=== PATIENT | male | born 1945 | race Caucasian/White ===

== ENCOUNTER 2018-09-30 11:28 | Inpatient (IN) ==
--- NOTE | 2018-09-30 12:06 | Diag Imaging Result Doc PS360 ---
EXAM: CT HEAD W/O CONTRAST 09/30/2018 HISTORY: STROKE LIKE SYMPTOMS TECHNIQUE: This exam was performed using automated exposure control, adjustment of mA or kV according to patient size, and/or use of iterative reconstruction technique. COMMENT: There are patchy periventricular white matter lucencies bilaterally as well as an area of encephalomalacia in the left cerebellar sphere. There is a small lacune in the basal ganglia inferiorly on the left. No evidence of mass effect, bleed, or abnormal extra-axial fluid collection is present. The visualized paranasal sinuses are clear. The calvarium is intact. Compared to the previous examination of 10/27/2014 most of the chronic changes were present previously however the encephalomalacia in the left cerebellar hemisphere was not present at that time. IMPRESSION: Chronic ischemic microvascular changes. Encephalomalacia in the left cerebellar hemisphere which has occurred since 10/27/2014. Electronically signed by Jose Mendoza 09/30/2018 12:03 PM
[2018-09-30 12:41] LABS: INR 1.01; PROTIME 14.1 Seconds (11.0-16.0)
[2018-09-30 12:47] LABS: BASO# 0.01 X1000 (0.0-0.2); BASO% 0.1 % (0.0-0.8); EOS# 0.02 X1000 (0.0-0.7); EOS% 0.3 % (0.0-10.0); HEMATOCRIT 26.2 % (42.0-52.0); HEMOGLOBIN 7.6 g/dL (14.0-18.0); LYMPH# 2.08 X1000 (1.2-3.4); LYMPH% 26.9 % (20.5-51.1); MCH 18.7 PG (27-31); MCV 64.4 FL (81-99); MONO# 0.47 X1000 (0.11-0.59); MONO% 6.1 % (1.7-9.3); MPV 8.6 FL (7.4-10.4); NEUT# 5.15 X1000 (1.4-6.5); NEUT% 66.6 % (42.2-75.2); PLT 505 X1000 (130-400); RBC 4.07 XMIL (4.7-6.1); RDW 18.9 % (11.5-14.5); WBC 7.73 X1000 (4.8-10.8)
[2018-09-30 13:10] LABS: AGAP 12; ALB/GLOB RATIO 0.9; ALBUMIN 3.2 g/dL (3.5-5.0); ALKALINE PHOSPHATASE 102 U/L (32-122); BUN 13 mg/dL (8-22); CALCIUM 8.7 mg/dL (8.8-10.2); CHLORIDE 97 mmol/L (98-107); COSMO 270; CREATININE 1.1 mg/dL (0.7-1.2); ESTIMATED GFR > 60; GLUCOSE 93 mg/dL (70-104); GOT 11 U/L (10-34); GPT < 5 U/L (10-44); POTASSIUM 3.8 mmol/L (3.5-5.1); SODIUM 135 mmol/L (136-145); TCO2 26 mmol/L (25-35); TOTAL BILIRUBIN 0.22 mg/dL (0.20-1.00); TOTAL PROTEIN 6.7 g/dL (6.3-8.3)
--- NOTE | 2018-09-30 13:16 | Diag Imaging Result Doc PS360 ---
EXAM: CHEST-PORTABLE 09/30/2018 HISTORY: stroke like symptoms TECHNIQUE: AP portable at 1307 COMMENT: There are some rib deformities on the left which are presumably due to previous fractures. The heart size and pulmonary vascularity are within normal limits. There are some skin fold seen over the lower chest bilaterally. Overall considering differences in technique there has been no significant change since 08/30/2016. IMPRESSION: Stable chest. Electronically signed by Jose Mendoza 09/30/2018 1:13 PM
[2018-09-30 13:36] LABS: URINE SOURCE CATH
[2018-09-30 13:47] LABS: BILIRUBIN URINE NEGATIVE (NEGATIVE); BLOOD URINE TRACE (NEGATIVE); COLOR YELLOW; GLUCOSE URINE NEGATIVE (NEGATIVE); KETONE URINE NEGATIVE (NEGATIVE); LEUKOCYTES URINE NEGATIVE (NEGATIVE); NITRITE URINE NEGATIVE (NEGATIVE); PROTEIN URINE 200 mg/dL (NEGATIVE); SP GRAVITY URINE 1.012; TURBIDITY URINE CLEAR (CLEAR); UROBILINOGEN URINE NORMAL (NORMAL)
[2018-09-30 13:48] LABS: UR EPITHELIAL CELLS <10 /HPF (<10); URINE BACTERIA NEGATIVE /HPF; URINE RBC <10 /HPF (<10); URINE WBC <10 /HPF (<10)
--- NOTE | 2018-09-30 14:55 | EKG Report ---
Test Performed on : 09/30/2018 12:18:25 PM Test Reason : Stroke like symptoms Blood Pressure : / mmHG Vent. Rate : 068 BPM Atrial Rate : 068 BPM P-R Int : 202 ms QRS Dur : 090 ms QT Int : 424 ms P-R-T Axes : 036 023 055 degrees QTc Int : 450 ms Normal sinus rhythm. Nonspecific ST abnormality Abnormal ECG When compared with ECG of 30-AUG-2016 06:02, Vent. rate has decreased BY 35 BPM Unconfirmed Result
[2018-09-30] MEDS ORDERED: ZOFRAN IV PRN (15:52)
[2018-09-30] MEDS ORDERED: TORADOL IV PRN (15:52)
[2018-09-30] MEDS ORDERED: TYLENOL PO PRN (15:52)
--- NOTE | 2018-09-30 17:41 | HISTORY AND PHYSICAL ---
CHIEF COMPLAINT: Confusion with left-sided weakness, especially left arm PRESENT ILLNESS: The patient is a 73-year-old white male with known vascular disease and COPD, as well as dementia who has had memory problems but this got much worse around 6 a.m. this morning. He also felt very weak and was unsteady on his feet. His had him brought to the emergency room. When he got here his left arm was much weaker than it had been previously and he is still having some problems with it. MEDICATIONS: Aricept 10 mg by mouth daily, aspirin 81 mg daily, Crestor 40 mg at bedtime, indapamide 2.5 mg daily, Namenda 10 mg twice daily, amlodipine 10 mg daily, omeprazole 40 mg daily, Trelegy Ellipta 1 puff daily, Zetia 10 mg daily. PAST MEDICAL HISTORY: Hyperlipidemia, peripheral vascular disease, COPD, dementia, chronic hearing loss, wears a hearing aid in the right ear, hypertension, prediabetes, BPH, left inguinal hernia, and proteinuria. PAST SURGICAL HISTORY: Appendectomy, cholecystectomy, bypass on left leg, carotid arteries bilaterally, tonsillectomy. FAMILY HISTORY: Positive for breast cancer with a sister, diabetes with his brother, and heart disease with his father. SOCIAL HISTORY: The patient has been a smoker. REVIEW OF SYSTEMS: Unable to obtain at this point other than through his . Neurologic: He did deny headaches. He is unaware that he has had a problem controlling his hand. She said he has been stable with all systems until this morning, other than his dementia, which has been progressive. PHYSICAL EXAMINATION: VITAL SIGNS: Blood pressure was 113/69, has been up to 179/84, respirations 18, pulse 70, temp 97.4 degrees Fahrenheit, oxygen saturation is 99% on room air. HEENT: Normocephalic. EOMs intact. PERRLA. Throat clear. Fundi not seen well due to constriction of pupils. TMs within normal limits. He does have a hearing aid in the right ear. NECK: Supple without thyromegaly, lymphadenopathy, or carotid bruits. LUNGS: Clear to auscultation and percussion without rhonchi, rales, or wheezes. HEART: Regular rate and rhythm without murmurs, gallops, or friction rubs. ABDOMEN: Soft. Active bowel sounds. No organomegaly or tenderness. INTEGUMENT: Shows no lesions consistent with melanoma or other skin cancers. LYMPHATIC: Lymph nodes are nonpalpable in the cervical and supraclavicular areas. NEUROLOGICAL: Cranial nerves 2-12 intact grossly. He does have definite weakness of his left arm and loss of control there. 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 Some question about a little bit of weakness in his left lower extremity but this is not very clear at this point. IMAGING: CT scan of the head showed no acute findings. LABORATORY: White count 7,730, hemoglobin 7.6, hematocrit 26.2. He has been having a chronic anemia that we were working up as an outpatient. Platelet count is 505,000. INR is 1.01, PT 14.1, PTT 30. Sodium 135, potassium 3.8, chloride 9.7, BUN 13, creatinine 1.1. Urine was essentially normal except for some protein, which he has had previously. ASSESSMENT: 1. Probable cerebrovascular accident. 2. Dementia. 3. Anemia, which was found to be an iron deficiency anemia. PLAN: We will get an MRI scan of his head. We will start him on Plavix and stop his aspirin. We will consult Neurology. cc: Tony Trinidad Jr, MD MTDD
[2018-09-30 17:57] LABS: IRON SATURATION 4 %; TIBC 322 ug/dL; TOTAL IRON 12 ug/dL (53-167); UNBOUND IRON 310 ug/dL (112-346)
--- NOTE | 2018-09-30 17:59 | PROVIDER DOCUMENTATION ---
This chart was entered by Leidy Gee Scribe, acting as scribe for Roland Leger MD. HPI-Neurological Disorder - General Chief Complaint: Stroke-Like Symptoms Stated Complaint: STROKE LIKE SYMPTOMS Time Seen by Provider: 09/30/18 12:00 Source: family Allergies/Adverse Reactions: Patient Allergies Allergy/AdvReac Type Severity Reaction Status Date / Time meperidine HCl * Allergy NAUSEA/VOMI Verified 09/30/18 12:08 [From Demerol] TING morphine AdvReac VOMITING Verified 09/30/18 12:08 Sulfa (Sulfonamide AdvReac NAUSEA/VOMI Verified 09/30/18 12:08 Antibiotics) TING Home Medications: Home Medication List Medication Instructions Recorded Confirmed Last Taken Type Donepezil [Aricept] 10 mg PO DAILY 08/30/16 09/30/18 09/29/18 History Memantine HCl [Namenda] 10 mg PO DAILY 08/30/16 09/30/18 09/29/18 History Omeprazole 40 mg PO DAILY 08/26/18 09/30/18 09/29/18 History Ezetimibe 1 tab PO QHS 09/30/18 09/30/18 09/29/18 History - History of Present Illness-Neuro Nature of Presenting Problem: Patient is a 73 year old male who presents with LUE weakness that started at 0630 this morning. Patient's denies patient had trouble walking. Patient denies pain. Severity: reports: mild Onset/Duration: reports: this morning (0630) Timing: reports: still present Character of Altered Mental Status: reports: N/A Character of Deficits: reports: new weakness New weakness or altered sensation location:: reports: LUE Cognitive Baseline: alert, oriented x3 Gait Baseline: walks without assistance Associated Symptoms: reports: denies symptoms Similar Symptoms Previously?: No Recently seen or treated by another doctor?: No Review of Systems - Adult - REVIEW OF SYSTEMS - ADULT ROS:: ROS per family () Constitutional: reports: no symptoms reported. denies: chills, fever, fatique Eyes: reports: no symptoms reported Ears, Nose, Mouth & Throat: reports: no symptoms reported Cardiovascular: reports: no symptoms reported Respiratory: reports: no symptoms reported Gastrointestinal: reports: no symptoms reported Genitourinary: reports: no symptoms reported Musculoskeletal: reports: no symptoms reported Integumentary: reports: no symptoms reported Neurological: reports: see HPI, other (LUE weakness). denies: dizziness/vertigo, headache/migraines, numbness, seizure Psychiatric: reports: no symptoms reported Endocrine: reports: no symptoms reported Hematologic/Lymphatic: reports: no symptoms reported Allergic/Immunologic: reports: no symptoms reported All Other Systems: Reviewed and Negative Past History - Adult - PAST MEDICAL HISTORY-ADULT Review of Records: reports: Nursing Assessment Review, Medications Reviewed, Social history reviewed & non-contributory. Major Childhood Illnesses: reports: denies history Cardiovascular: reports: HTN, hyperlipidemia Respiratory: reports: COPD Gastrointestinal: reports: denies history Obstetrical/Gynecological: reports: denies history Genitourinary: reports: denies history Musculoskeletal: reports: denies history Neurological: reports: CVA Psychiatric: reports: denies history Endocrine/Immune: reports: denies history Other Conditions: reports: denies history - PRIOR SURGERIES/PROCEDURES Surgical/Procedure History: reports: recent surgery (left carotidectomy), tonsillectomy, other (BYPASS BLE) - IMMUNIZATION STATUS Childhood Immunizations: See Nurse Assessment Flu Vaccine: See Nurse Assessment - FAMILY HISTORY Family History: reviewed, not pertinent - SOCIAL HISTORY Smoking: cigarettes (former) Substance Use: denies Living Situation: family Physical Exam- Neurological - Physical Exam-Neuro Initial Vital Signs Reviewed: Yes General Appearance: alert, no apparent distress, slow to respond. negative: lethargic Eye Exam: bilateral eye: normal inspection HENMT: normocephalic/atraumatic, moist mucous membranes, hearing deficit (chronic per ). negative: angioedema Head Injury: no evidence of injury. negative: ecchymosis, lacerations Neck: non-tender, normal inspection. negative: lymphadenopathy, tender lateral Respiratory: chest non-tender, lungs clear, normal breath sounds. negative: crackles, stridor Cardiovascular: normal peripheral pulses, regular rate, rhythm. negative: tachycardia, systolic murmur Abdominal Exam: normal bowel sounds, non tender, soft. negative: guarding, rebound Extremity: non-tender. negative: deformity, erythema director recreation Exam: normal speech, PERRL. negative: abnormal speech, facial droop Motor/Sensory: weak motor strength LUE Neurologic: motor weakness (LUE). negative: aphasia, facial droop Integumentary: normal color, normal turgor, warm/dry. negative: cyanosis, ecchymosis, erythema, jaundice, rash Psych/Mental Status: normal mood/affect, oriented x 3. negative: anxious - Glascow Coma Scale Best Eye Response: (4) open spontaneously Best Verbal Response: (5) oriented Best Motor Response: (6) obeys commands Total Glascow Score: 15 Progress - PLAN OF CARE/RESULTS Progress/Plan/Lab Results: Vital Signs - 8 hr 09/30/18 11:30 09/30/18 11:59 09/30/18 12:00 Temperature 97.8 F Pulse Rate 81 76 76 Respiratory Rate 18 13 23 Blood Pressure 171/95 126/76 O2 Sat by Pulse Oximetry 98 98 98 09/30/18 12:01 09/30/18 12:31 09/30/18 12:32 Temperature Pulse Rate 72 70 73 Respiratory Rate 29 H 20 25 H Blood Pressure 111/76 127/79 O2 Sat by Pulse Oximetry 97 98 98 09/30/18 12:40 09/30/18 12:50 09/30/18 13:00 Temperature Pulse Rate 72 73 80 Respiratory Rate 22 21 25 H Blood Pressure O2 Sat by Pulse Oximetry 97 97 98 09/30/18 13:01 09/30/18 13:10 09/30/18 13:20 Temperature Pulse Rate 72 76 73 Respiratory Rate 24 23 24 Blood Pressure 138/85 O2 Sat by Pulse Oximetry 98 97 98 09/30/18 13:30 09/30/18 13:32 09/30/18 13:40 Temperature Pulse Rate 75 70 75 Respiratory Rate 19 20 26 H Blood Pressure 131/85 O2 Sat by Pulse Oximetry 98 97 98 09/30/18 13:50 09/30/18 14:00 09/30/18 14:01 Temperature Pulse Rate 69 72 69 Respiratory Rate 17 23 18 Blood Pressure 129/83 O2 Sat by Pulse Oximetry 98 98 98 09/30/18 14:10 09/30/18 14:20 09/30/18 14:30 Temperature Pulse Rate 71 74 70 Respiratory Rate 24 19 24 Blood Pressure O2 Sat by Pulse Oximetry 99 99 98 09/30/18 14:31 09/30/18 15:01 Temperature Pulse Rate 77 71 Respiratory Rate 22 22 Blood Pressure 126/84 130/81 O2 Sat by Pulse Oximetry 99 97 Laboratory Results - last 24 hr 09/30/18 09/30/18 09/30/18 12:17 12:17 12:17 WBC 7.73 RBC 4.07 L Hgb 7.6 L Hct 26.2 L MCV 64.4 L MCH 18.7 L MCHC 29.0 L RDW Std Deviation 18.9 H Plt Count 505 H MPV 8.6 Immature Gran % (Auto) 0.0 Neut % (Auto) 66.6 Lymph % (Auto) 26.9 [place] % (Auto) 6.1 Eos % (Auto) 0.3 Baso % (Auto) 0.1 Immature Gran # (Auto) 0.00 Neut # (Auto) 5.15 Lymph # (Auto) 2.08 [place] # (Auto) 0.47 Eos # (Auto) 0.02 Baso # (Auto) 0.01 PT 14.1 INR 1.01 PTT (Actin FS) 30.0 Sodium 135 L Potassium 3.8 Chloride 97 L Carbon Dioxide 26 Anion Gap 12 BUN 13 Creatinine 1.1 Estimated GFR/1.73 m2 > 60 BUN/Creatinine Ratio 12 Glucose 93 POC Glucose Calculated Osmolality 270 Calcium 8.7 L Total Bilirubin 0.22 AST 11 ALT < 5 L Alkaline Phosphatase 102 Troponin T Total Protein 6.7 Albumin 3.2 L Globulin 3.5 Albumin/Globulin Ratio 0.9 Urine Source Urine Color Urine Turbidity Urine pH Ur Specific [place] Urine Protein Ur Glucose (Stick) Ur Ketones (Stick) Urine Blood Urine Nitrite Urine Bilirubin Urobilinogen Dipstick Urine Leukocytes Urine WBC (Auto) Urine RBC (Auto) U Epithel Cells (Auto) Urine Bacteria (Auto) 09/30/18 09/30/18 09/30/18 12:17 12:20 13:31 WBC RBC Hgb Hct MCV MCH MCHC RDW Std Deviation Plt Count MPV Immature Gran % (Auto) Neut % (Auto) Lymph % (Auto) [place] % (Auto) Eos % (Auto) Baso % (Auto) Immature Gran # (Auto) Neut # (Auto) Lymph # (Auto) [place] # (Auto) Eos # (Auto) Baso # (Auto) PT INR PTT (Actin FS) Sodium Potassium Chloride Carbon Dioxide Anion Gap BUN Creatinine Estimated GFR/1.73 m2 BUN/Creatinine Ratio Glucose POC Glucose 98 Calculated Osmolality Calcium Total Bilirubin AST ALT Alkaline Phosphatase Troponin T < 0.010 Total Protein Albumin Globulin Albumin/Globulin Ratio Urine Source CATH Urine Color YELLOW Urine Turbidity CLEAR Urine pH 7.0 Ur Specific [place] 1.012 Urine Protein 200 A Ur Glucose (Stick) NEGATIVE Ur Ketones (Stick) NEGATIVE Urine Blood TRACE A Urine Nitrite NEGATIVE Urine Bilirubin NEGATIVE Urobilinogen Dipstick NORMAL Urine Leukocytes NEGATIVE Urine WBC (Auto) <10 Urine RBC (Auto) <10 U Epithel Cells (Auto) <10 Urine Bacteria (Auto) NEGATIVE Orders Category Date Time Status Cardiac Monitoring DIRECTED Care 09/30/18 12:11 Active Finger Stick Blood Sugar (ED) DIRECTED Care 09/30/18 12:11 Active Misc. NRSG Communication Order DIRECTED Care 09/30/18 12:11 Active Oxygen Therapy- ED Nursing DIRECTED Care 09/30/18 12:11 Active Saline Loc NOW Care 09/30/18 12:11 Active CHEST-PORTABLE [RAD] Stat Exams 09/30/18 12:[address] HEAD W/O CONTRAST [CT] Stat Exams 09/30/18 11:34 Completed CBC WITH ELECTRONIC DIFF [HEME] Stat Lab 09/30/18 12:17 Completed COMPREHENSIVE METABOLIC PANEL [CHEM] Stat Lab 09/30/18 12:17 Completed PROTIME WITH INR [COAG] Stat Lab 09/30/18 12:17 Completed PTT [COAG] Stat Lab 09/30/18 12:17 Completed TROPONIN T Stat Lab 09/30/18 12:17 Completed URINALYSIS W/POSS RFLX CULT [URINALYSIS] Stat Lab 09/30/18 13:31 Completed EKG [EKG] Stat Ther 09/30/18 12:11 Draft Result Diagrams: 09/30/18 12:17 09/30/18 12:17 - EKG 1 Time of EKG reading by physician:: 12:18 EKG Read and Signed by:: Roland Leger EKG Interpretation (*Must complete 3 of following elements*): Abnormal Rate: 68 Rhythm: normal sinus rhythm [place]: normal Comments: nonspecific ST abnormality - XRAY 1 XRAY Study: Chest Impression: See EMR Report ( EXAM: CHEST-PORTABLE 09/30/2018 HISTORY: stroke like symptoms TECHNIQUE: AP portable at 1307 COMMENT: There are some rib deformities on the left which are presumably due to previous fractures. The he art size and pulmonary vascularity are within normal limits. There are some skin fold seen over the lower chest bilaterally. Overall considering differences in technique there has been no significant change since 08/30/2016. IMPRESSION: Stable chest. Electronically signed by Jose Mendoza 09/30/2018 1:13 PM 09/30/18 1313 Interpreting Physician: Jose Mendoza MD Dictated Date/Time: 09/30/18 1312 cc: Roland Leger MD; Geena Trinidad) - CT/MRI 1 CT Study: Head Impression: See EMR Report ( EXAM: CT HEAD W/O CONTRAST 09/30/2018 HISTORY: STROKE LIKE SYMPTOMS TECHNIQUE: This exam was performed using automated exposure control, adjustment of mA or kV according to patient size, and/or use of iterative reconstruction technique. COMMENT: There are patchy periventricular white matter lucencies bilaterally as well as an area of encephalomalacia in the left cerebellar sphere. There is a small lacune in the basal ganglia inferiorly on the left. No evidence of mass effect, bleed, or abnormal extra-axial fluid collection is present. The visualized paranasal sinuses are clear. The calvarium is intact. Compared to the previous examination of 10/27/2014 most of the chronic changes were present previously however the encephalomalacia in the left cerebellar hemisphere was not present at that time. IMPRESSION: Chronic ischemic microvascular changes. Encephalomalacia in the left cerebellar hemisphere which has occurred since 10/27/2014. Electronically signed by Jose Mendoza 09/30/2018 12:03 PM 09/30/18 1203 Interpreting Physician: Jose Mendoza MD Dictated Date/Time: 09/30/18 1202 cc: Roland Leger MD; Geena Trinidad) - CONSULTS/PCP/HOSPITALIST Notification #1 *Consult/PCP/Hospitalist*: Dr. Trinidad Time Discussed: 15:52 Reason/Comments: Dr. Leger consulted with Dr. Trinidad about patient. Consult Disposition: Admit Departure - Departure Date of Disposition Decision: 09/30/18 Time of Disposition Decision: 15:52 DIAGNOSIS: CVA (cerebral vascular accident) Disposition: ADMITTED INPATIENT 09 Certified Medical Emergency: Emergent Condition: Fair Referrals and Follow-Ups: Geena Trinidad [Primary Care Provider] - - Critical Care Note This patient required my direct & personal management of CC.: No Attestation - Physician/ ROSINA Attestation The physician spent face to face time with patient:: Yes Advanced Practice Provider documentation review:: Supervising physician onsite and consulted in the evaluation and care of this patient. The physician did have a face to face encounter with the patient. - NIH Stroke Scale Level of Consciousness: 0-Alert LOC Questions (ask month and age): 0-Answers Both Correctly LOC Commands (ask to open & close eyes;make a fist, let go): 0-Obeys Both Correctly Best Gaze (horizontal eye movement): 0-Normal Visual (use finger movement, counting or visual threat): 0-No Visual Loss Facial Palsy (show teeth or raise eyebrows & close eyes tght: 0-Symmetrical Movement Motor Function-left arm: 2-Some Effort Against [place] Motor Function-right arm: 0-Normal Motor Function-left le-Normal Motor Function-right le-Normal Limb Ataxia([id number], or heel to nguyen): 0-No Ataxia Sensory(pin prick to face,arms,trunk,legs-compare side/side): 0-No Ataxia Best Language(name item/read sentence.Ex-Down to Earth): 0-No Aphasia Dysarthria(Pt read words or say words Ex.Mama,Tip-Top,Thanks: 0-Normal Articulation Extinction and Inattention: 0-Normal NIH Total Score: 2 Stroke tPA Guidelines - Consultation Candidate for:: NOT A CANDIDATE (due to being out of the time window.) This chart was documented by the indicated scribe, (Leidy Gee, Far[place]) and accurately reflects the services I performed and decisions made by me, Roland Leger MD, as attested by the provider's signature.
[2018-09-30] MEDS: PLAVIX PO SCH (18:44)
[2018-09-30] MEDS: ZETIA PO SCH (20:20)
[2018-10-01] MEDS: PRILOSEC PO SCH (06:00)
[2018-10-01 08:05] LABS: BASO# 0.01 X1000 (0.0-0.2); BASO% 0.1 % (0.0-0.8); EOS# 0.05 X1000 (0.0-0.7); EOS% 0.7 % (0.0-10.0); HEMATOCRIT 28.1 % (42.0-52.0); LYMPH% 29.7 % (20.5-51.1); MCH 18.3 PG (27-31); MCHC 28.5 g/dL (33-37); MCV 64.4 FL (81-99); MONO% 7.4 % (1.7-9.3); MPV 8.8 FL (7.4-10.4); NEUT# 4.17 X1000 (1.4-6.5); NEUT% 62.1 % (42.2-75.2); PLT 516 X1000 (130-400); RBC 4.36 XMIL (4.7-6.1); WBC 6.73 X1000 (4.8-10.8)
[2018-10-01 08:33] LABS: AGAP 11; BUN 10 mg/dL (8-22); CALCIUM 8.4 mg/dL (8.8-10.2); CHLORIDE 98 mmol/L (98-107); COSMO 266; CREATININE 0.9 mg/dL (0.7-1.2); ESTIMATED GFR > 60; GLUCOSE 75 mg/dL (70-104); POTASSIUM 2.6 mmol/L (3.5-5.1); SODIUM 134 mmol/L (136-145); TCO2 25 mmol/L (25-35)
[2018-10-01] MEDS: ARICEPT PO SCH (10:11)
[2018-10-01] MEDS: NAMENDA PO SCH (10:11)
[2018-10-01] MEDS: PLAVIX PO SCH (10:11)
--- NOTE | 2018-10-01 11:20 | Diag Imaging Result Doc PS360 ---
MRI BRAIN W/WO CONTRAST - 09/30/2018 INDICATION: cva COMPARISON: Head CT 09/30/2018 FINDINGS: There is extensive patient motion artifact distorting the entire exam. There is a moderately large globular area of restricted diffusion centrally within the lateral left cerebellar hemisphere. This demonstrates some irregular adjacent contrast enhancement as well as internal contrast enhancement. The reason is unclear. There are also small areas restricted diffusion at the superior right parietal and occipital lobes based at the cortex. These are compatible with small strokes. No mass effect or midline shift. There is overall moderate cerebral atrophy. There is extensive periventricular white matter chronic microvascular disease. IMPRESSION: There are sizable areas restricted diffusion in the left cerebellar hemisphere, right occipital lobe and right parietal lobe. These are concerning for recent infarctions. The appearance of slight contrast enhancement within the left cerebellar hemisphere is indeterminate. Electronically signed by Tony Medrano 10/01/2018 11:18 AM
--- NOTE | 2018-10-01 12:18 | PROGRESS NOTE ---
DATE: 10/01/2018 SUBJECTIVE: The patient is still confused. This is somewhat baseline from his dementia. He still has weakness in his left upper extremity. Hemoglobin is 8. He has had GI bleed in the past. His iron is still low. OBJECTIVE: Vital Signs: Blood pressure is 88/62, respirations 18, pulse 73, temperature 97.6 degrees Fahrenheit. HEENT: Normocephalic. EOMs intact. PERRLA. Throat clear. Lungs: Clear to auscultation and percussion without rhonchi, rales, or wheezes. Heart: Regular rate and rhythm without murmurs, gallops, or friction rubs. Abdomen: Soft. Active bowel sounds. No organomegaly or tenderness. Neurological: Cranial nerves II through XII are intact grossly. He does have weakness of the left upper extremity. PLAN: Blood pressure had been 179/84, has gotten much lower. He is on no blood pressure medications. Will check stool for blood. Will start on IV fluids. Will start on iron supplementation. Carotid flow studies are pending. MRI scan shows left cerebellar stroke that may be intermediate in age, and two more acute strokes, one in the right parietal and one in the right occipital lobe. Neurology is yet to see. Will get Physical Therapy to work with him. cc: Tony Trinidad Jr, MD
[2018-10-01] MEDS: NS 1,000 ML IV SCH ×3 (13:33→20:49)
[2018-10-01] MEDS: SLOW-FE PO SCH (13:34)
--- NOTE | 2018-10-01 15:08 | CONSULTATION ---
DATE OF CONSULTATION: 10/01/2018 LOCATION: Room 320-B. HISTORY OF PRESENT ILLNESS: Mr. New is 73 years old and there is evidence of acute stroke. He has dementia and is not able to provide valid history. History is taken from bedside discussion with and son and from review of the hospital records for this admission. Dementia has been a problem for several years, gradually worse. He has been taking donepezil and memantine for a few years. He seems to tolerate that regimen. There is not history of recent serious head injury. He has not had previous diagnosed stroke. About 4 days ago he seemed suddenly more confused, hard to pay attention, drooping of left face and trouble using his left arm. Gait may have been more unsteady. 's report is that this seemed to fluctuate over the first day or two. She reports she would notice he had a lot of trouble using his left side and then later would seem to be using his left side better. Workup here includes brain MRI showing evidence of restricted diffusion in the right hemisphere as reported. There are some old changes in the left cerebellum with question of superimposed restricted diffusion there. I believe he has had carotid ultrasound with report pending. There is past history of dementia as above, COPD, dyslipidemia, hypertension, peripheral vascular disease and chronic very poor hearing. I saw Mr. New in 2014 when he had an episode with question of seizure following left carotid endarterectomy. There was concern for hyperemia syndrome. Symptoms resolved and he did well. CT and EEG were unremarkable then. He has been afebrile here. Systolic blood pressures have ranged 100s to 170s. Lab shows anemia. Chemistry showed mild hyponatremia, mild hypocalcemia, nothing else remarkable from encephalopathy standpoint. PHYSICAL EXAMINATION: On exam, Mr. New is awake, alert, sometimes attentive. When not vigorously involved in conversation, he seemed inattentive, squirming, attempting to get up from bed, not following 's suggestions that he be still and stay in bed. I observed him moving his left limbs purposefully. He demonstrated good power consistently in the right limbs. On the left, there is weakness in the deltoid, wrist extensor and engraver signature. 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 Sometimes, he moved his left leg better than others. Tone is increased in the left arm. He did rapid alternating movements better with the right hand than the left. He did pretty well with [id number] testing bilaterally. He seemed inattentive to pinprick testing, but he did respond to pinprick over the left limbs. Proprioception is good at the left second finger MCP joint. There was minimal left simultagnosia to tactile stimulation. He did not identify his left hand as his own and once identified his left hand as belonging to the examiner. I did not test his gait. He has full visual field tested grossly by confrontational finger counting. Facial motility is diminished bilaterally and there is a slight increased left lower facial weakness consistent with recent upper motor neuron event. Tongue is midline. He has good lateral eye movement. Upgaze is a little bit diminished, typical for age. Neck is supple without meningismus. IMPRESSION: 1. Left hemiparesis and neglect, imaging evidence of acute nondominant right hemisphere infarction. He has risk factors including age, dyslipidemia, hypertension. His dementia is certainly a factor in making management decisions, and I do not think he is a candidate for interventional or other aggressive management of recent ischemic stroke. We can continue physical therapy. I would continue clopidogrel, continue following blood pressure and treat that cautiously if systolic becomes more elevated, treat blood sugar aggressively if that becomes elevated, treat lipids aggressively if indicated. I suspect he will be a candidate for rehab and those options will be limited by dementia. 2. Baseline dementia with steady progression. I would continue donepezil and memantine. Dose on each could be increased electively, but that is not urgent. Thanks for asking Neurology to see Mr. New. cc: MD Tony Connelly III, Jr, MD MTDD
[2018-10-01] MEDS: ZETIA PO SCH (20:43)
[2018-10-02] MEDS: NS 1,000 ML IV SCH ×2 (04:41→17:27)
[2018-10-02] MEDS: PRILOSEC PO SCH ×2 (06:48→06:53)
[2018-10-02 07:33] LABS: BASO# 0.03 X1000 (0.0-0.2); BASO% 0.4 % (0.0-0.8); EOS# 0.02 X1000 (0.0-0.7); EOS% 0.3 % (0.0-10.0); HEMATOCRIT 26.7 % (42.0-52.0); HEMOGLOBIN 7.6 g/dL (14.0-18.0); LYMPH# 2.14 X1000 (1.2-3.4); LYMPH% 27.8 % (20.5-51.1); MCH 18.9 PG (27-31); MCHC 28.5 g/dL (33-37); MCV 66.4 FL (81-99); MONO% 7.8 % (1.7-9.3); MPV 8.7 FL (7.4-10.4); NEUT% 63.7 % (42.2-75.2); PLT 482 X1000 (130-400); RBC 4.02 XMIL (4.7-6.1); RDW 19.1 % (11.5-14.5); WBC 7.69 X1000 (4.8-10.8)
[2018-10-02 08:17] LABS: AGAP 14; BUN 8 mg/dL (8-22); CALCIUM 7.6 mg/dL (8.8-10.2); CHLORIDE 101 mmol/L (98-107); COSMO 269; CREATININE 0.8 mg/dL (0.7-1.2); ESTIMATED GFR > 60; GLUCOSE 80 mg/dL (70-104); POTASSIUM 3.3 mmol/L (3.5-5.1); SODIUM 136 mmol/L (136-145); TCO2 21 mmol/L (25-35)
--- NOTE | 2018-10-02 08:24 | PROGRESS NOTE ---
DATE: 10/02/2018 SUBJECTIVE: The patient is sleepy. He was aroused, did not really want to talk much. Family members were in the room. OBJECTIVE: Vital signs: Blood pressure 113/66, respirations 17, pulse 63 and regular, temperature 97.7 degrees Fahrenheit. HEENT: Normocephalic. EOMs intact. PERRLA. Throat: Clear. Lungs: Clear to auscultation and percussion without rhonchi, rales, or wheezes. Heart: Regular rate and rhythm without murmurs, gallops, friction rubs. Abdomen: Soft. Active bowel sounds. No organomegaly or tenderness. Neurological: Patient does have weakness on the left side of his body. He is also demented. ASSESSMENT: 1. Cerebrovascular accident. 2. Dementia. 3. Peripheral vascular disease. PLAN: Awaiting carotid flow study results. Will consider him for rehab. Continue treatment. cc: Tony Trinidad Jr, MD
--- NOTE | 2018-10-02 08:30 | EKG Report ---
Test Performed on : 10/02/2018 08:02:23 AM Test Reason : cva Blood Pressure : / mmHG Vent. Rate : 067 BPM Atrial Rate : 067 BPM P-R Int : 362 ms QRS Dur : 100 ms QT Int : 426 ms P-R-T Axes : 047 033 072 degrees QTc Int : 450 ms Sinus rhythm. with 1st degree AV block. Incomplete right bundle branch block Left ventricular hypertrophy with repolarization abnormality Abnormal ECG When compared with ECG of 30-SEP-2018 12:18, (Unconfirmed) MT interval has increased Confirmed by Toña ROSEN, Ike Nobles ([id number]) on 10/02/2018 9:45:19 AM
--- NOTE | 2018-10-02 08:37 | Carotid Study ---
DATE: 09/30/2018 PROCEDURE: Carotid ultrasound study. REQUESTING PHYSICIAN: Tony Trinidad Jr, MD. INTERPRETING PHYSICIAN: Naren Browning MD. PREVIOUS COMPARISON: 10/07/2014. TECH: [place]. INDICATIONS: 1. CVA. 2. History of left carotid endarterectomy in 2014. EQUIPMENT: Wireid E9 ultrasound system with a 9LD transducer. OBSERVED DATA RIGHT LEFT Brachial Blood Pressure Carotid Pulse Bruits: Carotid/Sub DIAGRAM OF ULTRASOUND IMAGING R L RIGHT INT EXT INT EXT LEFT Jamie (cm/s) Jamie (cm/s) Subclavian 40/0 Subclavian 60/0 CCA Proximal 83/0 CCA Proximal 195/29 CCA Distal 76/5 CCA Distal 210/25 Bulb 73/5 Bulb 271/35 ICA Proximal 120/0 ICA Proximal 225/29 ICA Mid 76/0 ICA Mid 153/31 ICA Distal 25/1 ICA Distal 120/28 ECA 209/12 ECA 123/0 Vertebral 78/0 R Vertebral 42/9 A ICA/CCA Ratio 1.46 ICA/CCA Ratio 1.07 % Stenosis 40 - 59% % Stenosis 60 - 79% Abnormal flow noted in the right subclavian artery with associated retrograde right vertebral artery flow. This is changed from previous study. The right side at this point is producing a stenosis of 40-59%, which appears to be stable from previous study. The left side produces a stenosis of 60-79%. Both have atherosclerosis noted. The left-sided vertebral artery is antegrade flow. INTERPRETATION: Abnormal flow in the subclavian artery on the right with associated retrograde vertebral artery. The right side has a stenosis of the carotid artery of 40-59% and the left side has a severe stenosis of 60-79%. Given these findings and the abnormal flow, I would recommend a CT angiography of the chest and neck. cc: MD Tony Perez Jr, MD [facility]
[2018-10-02] MEDS: PLAVIX PO SCH (09:11)
[2018-10-02] MEDS: NAMENDA PO SCH (09:11)
[2018-10-02] MEDS: ARICEPT PO SCH (09:11)
[2018-10-02] MEDS: SLOW-FE PO SCH (09:12)
--- NOTE | 2018-10-02 14:22 | PROGRESS NOTE ---
DATE: 10/02/2018 SUBJECTIVE: Mr. New appeared to be sleeping but was very easily waked. He remained alert and attentive during my time at the bedside. OBJECTIVE: Speech is a little bit improved compared to yesterday. He identified his left arm correctly today. He squeezed my fingers with his left hand on command today. ASSESSMENT AND PLAN: I do not have any new thoughts today. I reviewed impression with son at the bedside. Dementia remains a negative prognostic factor regarding recovery after ischemic stroke. The left-sided neglect seems to be improved. No new suggestions today. Thanks for asking Neurology to see Mr. New. cc: MD Tony Connelly III, Jr, MD MTDD
[2018-10-02] MEDS: ZETIA PO SCH (20:34)
[2018-10-03] MEDS: NS 1,000 ML IV SCH ×3 (02:15→12:57)
[2018-10-03] MEDS: PRILOSEC PO SCH (06:45)
[2018-10-03 07:51] LABS: BASO# 0.01 X1000 (0.0-0.2); BASO% 0.1 % (0.0-0.8); HEMOGLOBIN 7.6 g/dL (14.0-18.0); LYMPH# 2.29 X1000 (1.2-3.4); LYMPH% 33.8 % (20.5-51.1); MCH 18.1 PG (27-31); MCHC 28.1 g/dL (33-37); MCV 64.4 FL (81-99); MONO# 0.38 X1000 (0.11-0.59); MONO% 5.6 % (1.7-9.3); MPV 8.6 FL (7.4-10.4); NEUT% 60.5 % (42.2-75.2); PLT 507 X1000 (130-400); RBC 4.19 XMIL (4.7-6.1); WBC 6.78 X1000 (4.8-10.8)
[2018-10-03 08:28] LABS: AGAP 13; BUN 5 mg/dL (8-22); CHLORIDE 101 mmol/L (98-107); COSMO 269; CREATININE 0.8 mg/dL (0.7-1.2); ESTIMATED GFR > 60; GLUCOSE 87 mg/dL (70-104); POTASSIUM 2.6 mmol/L (3.5-5.1); SODIUM 136 mmol/L (136-145); TCO2 22 mmol/L (25-35)
--- NOTE | 2018-10-03 09:21 | PROGRESS NOTE ---
DATE: 10/03/2018 SUBJECTIVE: The patient feels about the same. Still has weakness in his left arm and CVA as shown on his MRI scan. Carotid flow studies show abnormal flow in the subclavian artery on the right with associated retrograde vertebral artery. The right side has a stenosis of the carotid artery of 40 to 59 percent and the left side has a severe stenosis of 60 to 79 percent. Given these findings and the abnormal flow, it was recommended by Dr. Browning that the patient have a CT angiogram of the chest and neck. OBJECTIVE: Blood pressure 109/74, respirations 20, pulse 65, temperature 97.9 degrees Fahrenheit. HEENT: He is normocephalic. EOMs intact. PERRLA. Throat clear. Lungs: Clear to auscultation and percussion without rhonchi, rales, or wheezes. Heart: Regular rate and rhythm without murmurs, gallops, or friction rubs. Abdomen: Soft. Active bowel sounds. No organomegaly or tenderness. Neurological Examination: The patient still has weakness and loss of control of the left upper extremity. ASSESSMENT: 1. Cerebrovascular accident. 2. Peripheral vascular disease. 3. Dementia. 4. Chronic obstructive pulmonary disease. PLAN: We will consult vascular surgery. We will get a CT angiography of the chest and neck. cc: Tony Trinidad Jr, MD
[2018-10-03] MEDS: PLAVIX PO SCH (09:52)
[2018-10-03] MEDS: NAMENDA PO SCH (09:52)
[2018-10-03] MEDS: ARICEPT PO SCH (09:52)
[2018-10-03] MEDS: SLOW-FE PO SCH (09:52)
[2018-10-03] MEDS: POTASSIUM CHLORIDE 60 MEQ in NS 500 ML IV SCH ×2 (11:19→18:57)
--- NOTE | 2018-10-03 13:50 | Diag Imaging Result Doc PS360 ---
CT ANGIOGRAM THORAX, CT ANGIOGRAM NECK - 10/03/2018 INDICATION: cva TECHNIQUE: Axial CT images were obtained after administering intravenous contrast. Coronal MIP images were generated. COMPARISON: None FINDINGS: CHEST: There is severe diffuse vascular disease of the entire aorta. This is most heavy in the descending aorta. At the lowest portion of the exam at the upper abdomen, at the origin of the celiac artery, there is severe stenosis of the aorta with over 80% narrowing. There is also severe vascular calcification of the great artery origins. This is most marked at the origin of the left subclavian artery, which probably has about 90% stenosis. There is also advanced calcification with severe stenosis at the origin of the right subclavian artery, likewise with about 80-90% stenosis. No aneurysm. The left vertebral artery also demonstrates some heavy vascular plaque proximally. there is advanced COPD. No infiltrates. There are moderate degenerative changes of the spine. No acute or suspicious bony lesion. There is severe calcified coronary artery disease. NECK: There is heavy vascular disease of both carotid bulbs but is mainly calcified. On the right side there is mild narrowing by about 25%. At the distal left common carotid artery, there is severe stenosis of about 60% narrowing. There is multifocal minimal calcified plaque formation in the left vertebral artery which is small in size. This is also somewhat stenotic. The right vertebral artery is patent. The extracranial internal carotid arteries are patent. There is severe vascular disease with calcification of the cavernous and supraclinoid internal carotid arteries bilaterally. On the right side there is severe stenosis of about 50% at both of these locations. On the left side, there is more mild stenosis of about 40%. IMPRESSION: Severe vascular disease in multiple locations. This exam was performed using automated exposure control, adjustment of mA or kV according to patient size, and/or use of iterative reconstruction technique Electronically signed by Tony Medrano 10/03/2018 1:47 PM
--- NOTE | 2018-10-03 14:30 | PROGRESS NOTE ---
DATE: 10/03/2018 Mr. New is awake, alert, more attentive today. He quickly identified his left arm and raised it to command. There is no new neurologic finding. IMPRESSION: Remains nondominant right hemisphere infarction with left hemiparesis. Left-sided neglect appears to be resolving. Dementia remains a negative prognostic factor. I do not have any new thoughts or new suggestions from a neurologic standpoint today. Thanks for asking neurology to see Mr. New. cc: MD Tony Connelly III, Jr, MD
--- NOTE | 2018-10-03 20:52 | GENERAL SURGERY CONSULTATION ---
DATE: 10/03/2018 HISTORY OF PRESENT ILLNESS: This is a 73-year-old gentleman who developed left hemiparesis on Sunday. He was found by the family and was admitted for acute CVA in right hemisphere. No history of strokes in the past. He has had a left endarterectomy several years ago by Dr. Watt. He has also had aortobifemoral bypass as well as a perforated esophagus. All have been taken care by Dr. Watt. He lives at home. He has had some progressive dementia, but lives with his . MEDICAL HISTORY: Significant for extensive peripheral vascular disease, carotid stenosis, COPD, hyperlipidemia, hypertension, tobacco abuse, dementia. SURGICAL HISTORY: Includes a left CEA, aortobifemoral, perforated esophagus repair. SOCIAL HISTORY: Extensive smoking. FAMILY HISTORY: Reviewed. REVIEW OF SYSTEMS: Ten point negative. PHYSICAL EXAMINATION: General: He is afebrile, pulse 70, blood pressure 119/79, oxygen 96 percent. General: He is a chronically ill, elderly-appearing gentleman. HEENT: He has no scleral icterus. Cardiovascular: Normal rate. Pulmonary: No increased work of breathing. Abdomen: Soft. Integument: Warm, dry. Psychiatric: Somewhat confused. Neurologic: He has left hemiparesis with weakness, but is able to resist gravity, conversant, but is somewhat confused. Peripheral vascular: Feet are warm, but no palpable pulses. LABS: White count 6, hematocrit 27. Creatinine 0.8. Troponin's were normal on admission. IMAGING: I reviewed his imaging, including angiography and carotid duplex, which shows a 40 to 59% stenosis on the right, 60 to 79% on the left, with antegrade vertebrals on the left, retrograde on the right. ASSESSMENT AND PLAN: This is a 73-year-old gentleman with acute right hemispheric cerebrovascular accident with carotid stenosis. He does have some restenoses on the left, has actually worsened on the right. Given his acute stroke and the bilateral disease, and his frail condition, I would recommend medical management as you are currently with antiplatelets and antilipid agents. We will follow him along during physical therapy and he can see us in 6 weeks. I have discussed with Dr. Watt, who is familiar with the patient. cc: MD Tony Pike Jr, MD
[2018-10-04] MEDS: ZETIA PO SCH (00:15)
[2018-10-04] MEDS: NS 1,000 ML IV SCH (04:17)
[2018-10-04] MEDS: PRILOSEC PO SCH (06:18)
[2018-10-04 08:08] LABS: BASO# 0.02 X1000 (0.0-0.2); BASO% 0.3 % (0.0-0.8); EOS# 0.01 X1000 (0.0-0.7); EOS% 0.2 % (0.0-10.0); HEMATOCRIT 27.1 % (42.0-52.0); HEMOGLOBIN 7.7 g/dL (14.0-18.0); LYMPH# 2.02 X1000 (1.2-3.4); LYMPH% 31.1 % (20.5-51.1); MCH 18.6 PG (27-31); MCHC 28.4 g/dL (33-37); MCV 65.3 FL (81-99); MONO% 6.2 % (1.7-9.3); MPV 8.8 FL (7.4-10.4); NEUT# 4.04 X1000 (1.4-6.5); NEUT% 62.2 % (42.2-75.2); PLT 508 X1000 (130-400); RBC 4.15 XMIL (4.7-6.1); RDW 19.2 % (11.5-14.5); WBC 6.49 X1000 (4.8-10.8)
[2018-10-04 08:31] LABS: AGAP 8; BUN 5 mg/dL (8-22); CHLORIDE 102 mmol/L (98-107); COSMO 265; CREATININE 0.8 mg/dL (0.7-1.2); ESTIMATED GFR > 60; GLUCOSE 88 mg/dL (70-104); POTASSIUM 3.5 mmol/L (3.5-5.1); SODIUM 134 mmol/L (136-145); TCO2 24 mmol/L (25-35)
[2018-10-04] MEDS: PLAVIX PO SCH (09:30)
[2018-10-04] MEDS: ARICEPT PO SCH (09:30)
[2018-10-04] MEDS: SLOW-FE PO SCH (09:30)
[2018-10-04] MEDS: NAMENDA PO SCH (09:30)
--- NOTE | 2018-10-04 09:34 | DISCHARGE SUMMARY ---
ADMISSION DATE: 09/30/2018 DISCHARGE DATE: 10/04/2018 CONSULTATIONS: 1. Neurology, Dr. Felipe. 2. Vascular Surgery, Dr. Watt and Dr. Vasquez. Dr. Vasquez actually saw the patient. FINAL DIAGNOSES: 1. Cerebrovascular accident, with left-sided weakness. 2. Peripheral vascular disease. 3. Dementia. SECONDARY DIAGNOSES: 1. Hyperlipidemia. 2. Hypertension. 3. Gastroesophageal reflux disease. 4. Chronic obstructive pulmonary disease. 5. Benign prostatic hypertrophy. 6. Prediabetes. 7. Proteinuria. DISCHARGE MEDICATIONS: His discharge medications will be his regular home medications, except we will stop the aspirin and placed him on Plavix 75 mg daily. It should also be noted that the patient has a chronic anemia and has iron deficiency, and I will also place him on ferrous sulfate 325 mg daily. He has already had a GI workup for this. HISTORY OF PRESENT ILLNESS: The patient is a 73-year-old, white male, with known vascular disease, who came in with left-sided weakness, mostly his left arm, but some questionable weakness in the left leg. Definite loss of control of left arm. He can move it some. He has inattention to that arm as well though that seems to be getting a little bit better. He was admitted, and an MRI scan of the brain showed sizable areas of restricted diffusion in the left cerebellar hemisphere, right occipital lobe, and right parietal lobe. He also has multiple areas of atherosclerotic disease. This was evaluated by Dr. Ariel Vasquez who felt like the patient was not a surgical candidate at this point. Please see CT angiogram reports. PHYSICAL EXAMINATION: Vital Signs: Blood pressure is 116/81, respirations 17, pulse 70, temperature 98.2 degrees Fahrenheit. HEENT: Normocephalic. EOMs intact. PERRLA. Throat clear. Lungs: Clear to auscultation and percussion without rhonchi, rales, or wheezes. Heart: Regular rate and rhythm without murmurs, gallops, friction rubs. Abdomen: Soft. Active bowel sounds. No organomegaly or tenderness. Neurological: The patient still has weakness in the left upper extremity. He can move it some, but does not have much control. The patient is also very demented and is on medication for that. PLAN: We will send him to rehab. He will follow up with me after rehab, and we will follow up with Dr. Watt in about 6 weeks. cc: Tony Trinidad Jr, MD
--- NOTE | 2018-10-04 10:21 | PROGRESS NOTE ---
DATE: 10/04/2018 Mr. New is awake, alert, attentive. He had some appropriate conversation with me. He has regained some of his baseline sense of personality. Speech is not dysarthric. He used his left arm purposefully. I do not have any new suggestions. From a stroke management standpoint, I think we can continue current management. For dementia, if not previously tried, a higher dose donepezil and/or higher dose memantine could be considered later. I will be glad to see Mr. New again if needed. Thank you for asking me to see him here. cc: MD Tony Connelly III, Jr, MD
[2018-10-04 11:46] VITALS: BP 118/69
== END 2018-10-04 12:55 | DRG 65 ==
LOC: ED 11:28 → 3N 11:28 → OBSVTOIN 16:25
PROVIDERS: ADMIT Emergency Medicine; ATTEND Emergency Medicine
CPT/HCPCS: 51701; 70450; 70498; 70553; 71010; 71045; 71275; 80048; 80053; 81001; 82728; 82948; 83540; 83550; 84484; 85025; 85610; 85730; 93005; 93010; 93880; 97116; 97162; 97530; 99285; A9270; A9579; J3480; J7030; J7040; P9612; Q9967; XXXXX